=== PATIENT | male | born 1980 | race Hispanic/Latino ===

== ENCOUNTER 2019-10-07 18:59 | Emergency (ER) | payer OTHER ==
--- NOTE | 2019-10-07 19:33 | RAD ---
EXAM: Two views chest PROVIDED CLINICAL HISTORY: Cough COMPARISON: None FINDINGS: Cardiac and mediastinal silhouette appears within normal limits. Lungs appear free of significant opa city. No pleural fluid or pneumothorax apparent. IMPRESSION: No evidence for an acute cardiopulmonary process.
== END 2019-10-07 20:25 ==
LOC: ERS 18:59 → EEVIPCON 18:59 → ERS 20:25
DX: J20.9 Acute bronchitis, unspecified (principal)
CPT/HCPCS: 71046; 87804